=== PATIENT | male | born 1960 | race Caucasian/White ===

== ENCOUNTER 2023-01-17 08:43 | Observation (INO) | payer OTHER, SELFPAY ==
--- NOTE | ~2023-01-17 | XR_ITS ---
EXAMINATION: XR CHEST CLINICAL INFORMATION: Shortness of breath. COMPARISON: None TECHNIQUE: Portable AP view of the chest was obtained. XR/XR chest 1V FINDINGS/IMPRESSION: The study is limited by portable technique and low lung volumes. The right hemidiaphragm is mildly elevated. Associated right basilar patchy density suggests atelectasis and/or infiltrate. The left lung appears grossly clear. No effusion or pneumothorax is noted. The cardiac silhouette is suboptimally evaluated. There are mild degenerative changes of the spine.
--- NOTE | 2023-01-17 08:53 | ECG_ITS ---
Test Reason : DYSPNEA Blood Pressure : / mmHG Vent. Rate : 108 BPM Atrial Rate : 108 BPM P-R Int : 184 ms QRS Dur : 104 ms QT Int : 346 ms P-R-T Axes : 075 -64 062 degrees QTc Int : 463 ms Sinus tachycardia Incomplete right bundle branch block Left anterior fascicular block Abnormal ECG No previous ECGs available Referred By: Katie Manzano Electronically Signed By:
[2023-01-17 08:54] VITALS: BP 143/72; BP 144/74; PULSE 102; PULSE 110; RESP 26; TEMP 36.6; O2SAT 95; BMI 27.1
[2023-01-17 09:06] VITALS: PULSE 115; RESP 23; O2SAT 97
[2023-01-17] MEDS: Albuterol Sulfate (0.083%) 2.5 MG/3 ML VIAL.NEB 10 MG INHALE (09:06)
--- NOTE | 2023-01-17 09:15 | ED.SOB ---
HPI - SOB/Dyspnea General Chief Complaint: Dyspnea Stated Complaint: difficulty breathing Time Seen by Provider: 01/17/23 08:55 Source: patient and EMS Mode of arrival: EMS Limitations: no limitations History of Present Illness HPI Narrative: Patient is a 62-year-old male who presents to emergency department for evaluation of difficulty breathing. He reports onset of symptoms to be suddenly a couple hours prior to arrival. Reports that he was at rest when this developed, he began feeling significantly short of breath. However of note, patient has been having some difficulty breathing over the past couple of months per family member but it has been manageable. Upon EMS arrival today patient was unable to stand or talk in complete sentences, initial O2 saturation was 68% on room air, inspiratory and expiratory wheezing throughout out and look sounds diminished. EMS administered albuterol 5 mg with Atrovent, and 2 g of Mag intravenously. At the time of my examination patient denies recent upper respiratory type symptoms, known sick contacts, fevers, chills, sore throat, headache, dizziness, chest pain, nausea, vomiting, abdominal pain, numbness or tingling of the extremities, edema. Reports his only past medical history to be asthma, for which he takes Flovent and albuterol as needed. Related Data Home Medications Medication Instructions Recorded Confirmed albuterol sulfate 90 mcg/actuation 2 puff inhalation Q4-6H PRN 01/17/23 01/17/23 aerosol inhaler wheezing ascorbic acid (vitamin C) 500 mg 500 mg PO DAILY 01/17/23 01/17/23 tablet (Vitamin C) cholecalciferol (vitamin D3) 25 25 mcg PO DAILY 01/17/23 01/17/23 mcg (1,000 unit) tablet (Vitamin D3) fluticasone propionate 50 1 puff inhalation BID 01/17/23 01/17/23 mcg/actuation blister powder for inhalation (Flovent Diskus) fluticasone propionate 50 1 spray intranasal DAILY 01/17/23 01/17/23 mcg/actuation nasal spray,suspension multivitamin 1 tab PO DAILY 01/17/23 01/17/23 Allergies Allergy/AdvReac Type Severity Reaction Status Date / Time Penicillins Allergy Unknown Unknown Verified 01/17/23 08:53 Review of Systems Review of Systems: Pertinent positives and negatives as reported in HPI Yes all other systems are reviewed and are negative [facility] Past Medical History Attestation statement: The following information was validated with the patient. Source: old records reviewed Medical History (Updated 01/17/23 @ 17:10 by Katie Manzano CNP) Mild persistent asthma Social History Social History Alcohol intake: never Smoked in Last 30 Days: No Use of substances other than those prescribed or required for medical reasons: No Advance Directives: No Advance Directives Information Provided: Yes Physical Exam Vital Signs: Vital Signs: Last Vital Signs Temp 97.5 F 01/17/23 12:52 Pulse 121 H 01/17/23 13:45 Resp 20 01/17/23 13:45 BP 135/63 01/17/23 12:52 Pulse Ox 96 01/17/23 13:45 O2 Del Method 01/17/23 13:45 Oxygen Flow Rate 2 01/17/23 08:54 BMI result Body Mass Index 27.1 Appearance: Alert.?Oriented to person, place and time. No acute distress.?Normal affect. Eyes: Pupils equal, round and reactive to light.? ENT: Pharynx normal.??TM normal bilaterally Neck: Normal inspection.? Neck supple.??No JVD CVS: Heart sounds normal. Normal heart rate and rhythm.? Pulses normal.?? Respiratory: Increased work of breathing.? Lung sounds with inspiratory and expiratory wheezing throughout, diminished at the bases? Abdomen: Soft and non-tender. Normoactive bowel sounds. Skin: Skin warm and dry.? Normal skin color.? Normal skin turgor.?? Extremities: No lower extremity edema.? No calf ttp? Neuro: Moves all extremities spontaneously. Sensation intact bilaterally. No focal neuro deficits. Ambulates with normal steady gait. Course Reevaluation(s) Reevaluation #1: CBC reveals leukocytosis 17.4 with left shift, CMP revealing elevated BUN at 24, borderline creatinine 1.34, troponin 13.6, EKG revealing sinus tachycardia with incomplete right bundle-branch block, no acute ischemic findings. BNP within normal limits COVID-19/influenza testing are negative. Lactic acid is elevated at 3.2, has already received 1 L normal saline IV fluid, will order additional 1721 mL normal saline, chest x-ray revealing right basilar infiltrate concerning for pneumonia, Rocephin IV and doxycycline IV ordered at this time. Sepsis alert called, nursing staff made aware. Time: 10:36 Reevaluation #2: Received call from lab regarding critical lactic acid, resulting at 6.0, although I suspect this is more so due to albuterol administration as opposed to severe sepsis at this time. At this time, he reports significant improvement in symptoms. He remains tachycardic with heart rate in the 1 teens, this may be in part due to albuterol administration, he does additionally state that his heart rate is always high when he was in the doctor's office and/or hospital, due to anxiety. He is in no apparent respiratory distress, maintaining room air saturation at 97% while at rest. Discussed plan of care, inpatient admission for IV antibiotics, sepsis Time: 12:45 Reevaluation #3: Ambulatory O2 sat 94%, remains tachycardic with heart rate in the 120s, tachypneic after exertion respiratory rate 26. Based on his presentation in acute distress to the emergency department, presence of pneumonia, sepsis, spoke with hospitalist team who agree for admission to medicine service, Renee CATALAN Time: 13:51 Medications Administered Generic Name Dose Route Start Last Admin Trade Name Freq PRN Reason Stop Dose Admin Albuterol Sulfate 2.5 mg/ 0 mg 01/17/23 16:00 01/17/23 17:02 Ipratropium [place] 0.5 mg INHALE 1 each RQ4H WHILE AWAKE MICHELLE Administration Enoxaparin Sodium 40 mg 01/17/23 15:45 01/17/23 16:59 Enoxaparin Sodium 40 Mg/0.4 Ml Syringe SUBCUT 40 mg Q24H MICHELLE Administration Methylprednisolone Sodium Succinate 40 mg 01/17/23 15:45 01/17/23 16:59 Methylprednisolone Sod Succ 40 Mg/Ml Vial IVPUSH 40 mg Q12H MICHELLE Administration Sodium Chloride 3 ml 01/17/23 16:00 01/17/23 16:44 0.9 % Sodium Chloride Flush 3 Ml Syringe IVFLUSH Not Given QSHIFT MICHELLE Discontinued Medications Generic Name Dose Route Start Last Admin Trade Name Freq PRN Reason Stop Dose Admin Albuterol Sulfate 10 mg 01/17/23 08:53 01/17/23 09:06 Albuterol Sulfate (0.083%) 2.5 Mg/3 Ml Vial.Neb INHALE 01/17/23 08:54 10 mg ONCE ONE Administration Sodium Chloride 1,000 mls @ 999 mls/hr 01/17/23 10:45 01/17/23 12:37 Ns IV 01/17/23 12:28 Not Given .Q1H1M MICHELLE Ceftriaxone Sodium 1 gm/ 50 mls @ 100 mls/hr 01/17/23 10:41 01/17/23 12:12 Sodium Chloride IV 01/17/23 11:10 Infused ONCE ONE Infusion Doxycycline Hyclate 100 mg/ 250 mls @ 166.67 mls/hr 01/17/23 10:41 01/17/23 13:45 Sodium Chloride IV 01/17/23 12:10 Infused ONCE ONE Infusion Methylprednisolone Sodium Succinate 125 mg 01/17/23 09:19 01/17/23 10:27 Methylprednisolone Sod Succ 125 Mg/2 Ml Vial IVPUSH 01/17/23 09:20 125 mg ONCE ONE Administration Medical Decision Making Medical Decision Making MDM Narrative: Patient is a 62-year-old male with reported past medical history of mild persistent asthma presenting to emergency department for evaluation of sudden onset worsening shortness of breath/difficulty breathing, as reported in HPI. Pre-hospital patient received albuterol 5 mg and Atrovent nebulizer, magnesium 2 g IV. Had significant increased work of breathing and room air hypoxia per EMS report. At the time examination he has tachypnea, tachycardia, based on this meeting criteria for SIRS, will obtain lactic acid and blood cultures, though viral etiology may be the cause at this time. Will obtain CBC to evaluate for leukocytosis/ anemia, CMP and lipase to evaluate for abnormal electrolytes /abnormal renal function/ abnormal hepatic/biliary function, BNP, EKG and troponin to evaluate for ischemia/ACS. Chest x-ray to evaluate for consolidation/ infiltrate/ mass/ pulmonary congestion. Patient to receive an additional albuterol 10 mg nebulizer, Solu-Medrol 125 mg IV. Differential Diagnosis Differential Diagnoses: The differential diagnosis associated with the presentation includes (ACS, pulmonary embolism, pneumonia, congestive heart failure, asthma exacerbation, viral upper respiratory infection; COVID-19, influenza, parainfluenza virus, adenovirus) Admission/Observation Consideration of admission/observation: Escalation of care including admission/observation considered Consult Healthcare Provider Management of the patient was discussed with: Hospitalist (As noted in course) Lab Data [facility] Lab Attestation statement: I reviewed the patient's lab results. 01/17/23 09:31 01/17/23 09:31 Labs: Lab Results 01/17/23 01/17/23 01/17/23 Range/Units 09:31 09:31 09:31 WBC 17.4 H (4.8-10.8) X10*3/uL RBC 5.31 (4.60-5.80) X10*6/uL Hgb 16.9 (14.0-18.0) g/dl Hct 51.8 (42.0-52.0) % MCV 97.6 (80.0-98.0) fL MCH 31.8 (27.0-33.0) pg MCHC 32.6 (31.0-36.0) g/dl RDW 12.5 (11.0-16.0) % Plt Count 196 (160-400) X10*3/uL MPV 10.6 (9.4-12.4) fL Immature Gran % (Auto) 0.6 H (0.0-0.4) % Neut % (Auto) 86.2 H (45-73) % Lymph % (Auto) 7.5 L (20-40) % [place] % (Auto) 4.5 (2-11) % Eos % (Auto) 0.9 (0-4) % Baso % (Auto) 0.3 (0-2) % Lymph # (Auto) 1.3 (1.2-4.9) X10*3/uL [place] # (Auto) 0.8 (0.1-1.2) X10*3/uL Eos # (Auto) 0.2 (0.0-0.4) X10*3/uL Baso # (Auto) 0.1 (0.0-0.2) X10*3/uL Abs Immat Gran (auto) 0.10 H (0.00-0.03) X10*3/uL Absolute Neuts (auto) 15.0 H (2.0-8.3) x10*3/uL Absolute Nucleated RBC 0.000 (0.0-0.012) X10*3/uL Nucleated RBC % (auto) 0.0 (0.0-0.2) /100WBC Sodium 141 (135-145) mmol/L Potassium 4.1 (3.3-5.1) mmol/L Chloride 107 (96-108) mmol/L Carbon Dioxide 24 (22-29) mmol/L Anion Gap 14 (12-20) BUN 24 H (9-16) mg/dL Creatinine 1.34 (0.5-1.4) mg/dL Estim Creat Clear Calc 61.1 Estimated GFR 54 Random Glucose 136 H (60-115) mg/dL Lactic Acid (0.5-2.0) mmol/L Lactic Acid F/U @ 2Hr (0.5-2.0) mmol/L Lactic Acid F/U @ 4Hr (0.5-2.0) mmol/L Calcium 8.6 (8.4-10.2) mg/dL Total Bilirubin 0.6 (0.0-1.0) mg/dL AST 22 (5-37) U/L ALT 31 (0-40) U/L Alkaline Phosphatase 74 (39-117) U/L Troponin I High Sens 13.6 (<3.5-35.0) ng/L B-Natriuretic Peptide (<100) pg/mL Total Protein 6.7 (6.5-8.0) g/dL Albumin 4.1 (3.5-5.0) g/dL COVID-19 ([facility]) (Negative) COVID-19 Clin Com Influenza Type A ([place]) (Negative) Influenza Type B ([place]) (Negative) Influenza A & B Note 01/17/23 01/17/23 01/17/23 Range/Units 09:33 09:33 09:52 WBC (4.8-10.8) X10*3/uL RBC (4.60-5.80) X10*6/uL Hgb (14.0-18.0) g/dl Hct (42.0-52.0) % MCV (80.0-98.0) fL MCH (27.0-33.0) pg MCHC (31.0-36.0) g/dl RDW (11.0-16.0) % Plt Count (160-400) X10*3/uL MPV (9.4-12.4) fL Immature Gran % (Auto) (0.0-0.4) % Neut % (Auto) (45-73) % Lymph % (Auto) (20-40) % [place] % (Auto) (2-11) % Eos % (Auto) (0-4) % Baso % (Auto) (0-2) % Lymph # (Auto) (1.2-4.9) X10*3/uL [place] # (Auto) (0.1-1.2) X10*3/uL Eos # (Auto) (0.0-0.4) X10*3/uL Baso # (Auto) (0.0-0.2) X10*3/uL Abs Immat Gran (auto) (0.00-0.03) X10*3/uL Absolute Neuts (auto) (2.0-8.3) x10*3/uL Absolute Nucleated RBC (0.0-0.012) X10*3/uL Nucleated RBC % (auto) (0.0-0.2) /100WBC Sodium (135-145) mmol/L Potassium (3.3-5.1) mmol/L Chloride (96-108) mmol/L Carbon Dioxide (22-29) mmol/L Anion Gap (12-20) BUN (9-16) mg/dL Creatinine (0.5-1.4) mg/dL Estim Creat Clear Calc Estimated GFR Random Glucose (60-115) mg/dL Lactic Acid 3.2 H* (0.5-2.0) mmol/L Lactic Acid F/U @ 2Hr (0.5-2.0) mmol/L Lactic Acid F/U @ 4Hr (0.5-2.0) mmol/L Calcium (8.4-10.2) mg/dL Total Bilirubin (0.0-1.0) mg/dL AST (5-37) U/L ALT (0-40) U/L Alkaline Phosphatase (39-117) U/L Troponin I High Sens (<3.5-35.0) ng/L B-Natriuretic Peptide (<100) pg/mL Total Protein (6.5-8.0) g/dL Albumin (3.5-5.0) g/dL COVID-19 ([facility]) Negative (Negative) COVID-19 Clin Com See Note Influenza Type A ([place]) Negative (Negative) Influenza Type B ([place]) Negative (Negative) Influenza A & B Note See Note 02/19/23 02/19/23 02/19/23 Range/Units 09:53 12:11 14:41 WBC (4.8-10.8) X10*3/uL RBC (4.60-5.80) X10*6/uL Hgb (14.0-18.0) g/dl Hct (42.0-52.0) % MCV (80.0-98.0) fL MCH (27.0-33.0) pg MCHC (31.0-36.0) g/dl RDW (11.0-16.0) % Plt Count (160-400) X10*3/uL MPV (9.4-12.4) fL Immature Gran % (Auto) (0.0-0.4) % Neut % (Auto) (45-73) % Lymph % (Auto) (20-40) % [place] % (Auto) (2-11) % Eos % (Auto) (0-4) % Baso % (Auto) (0-2) % Lymph # (Auto) (1.2-4.9) X10*3/uL [place] # (Auto) (0.1-1.2) X10*3/uL Eos # (Auto) (0.0-0.4) X10*3/uL Baso # (Auto) (0.0-0.2) X10*3/uL Abs Immat Gran (auto) (0.00-0.03) X10*3/uL Absolute Neuts (auto) (2.0-8.3) x10*3/uL Absolute Nucleated RBC (0.0-0.012) X10*3/uL Nucleated RBC % (auto) (0.0-0.2) /100WBC Sodium (135-145) mmol/L Potassium (3.3-5.1) mmol/L Chloride (96-108) mmol/L Carbon Dioxide (22-29) mmol/L Anion Gap (12-20) BUN (9-16) mg/dL Creatinine (0.5-1.4) mg/dL Estim Creat Clear Calc Estimated GFR Random Glucose (60-115) mg/dL Lactic Acid (0.5-2.0) mmol/L Lactic Acid F/U @ 2Hr 6.0 H* (0.5-2.0) mmol/L Lactic Acid F/U @ 4Hr 7.5 H* (0.5-2.0) mmol/L Calcium (8.4-10.2) mg/dL Total Bilirubin (0.0-1.0) mg/dL AST (5-37) U/L ALT (0-40) U/L Alkaline Phosphatase (39-117) U/L Troponin I High Sens (<3.5-35.0) ng/L B-Natriuretic Peptide 20 (<100) pg/mL Total Protein (6.5-8.0) g/dL Albumin (3.5-5.0) g/dL COVID-19 ([facility]) (Negative) COVID-19 Clin Com Influenza Type A ([place]) (Negative) Influenza Type B ([place]) (Negative) Influenza A & B Note Independent Interpretation I performed an independent interpretation of an: EKG and Plain X-Ray (I personally interpreted chest x-ray and agree with radiologist impression.) Interpretation: Rate: 111 Rhythm:? Sinus tachycardia [place]:? Normal Normal P waves.? Normal MICHAEL.?? Normal QRS complex.?? ST T wave :? No ST elevation, no ST depression? qTC: 459 prior studies:? None prior available for review The study has been interpreted contemporaneously by me. Radiology Impression Discussion of test interpretation with radiology: I have reviewed the radiologist's reading. Radiologist Impression: XR/XR chest 1V FINDINGS/IMPRESSION: ? The study is limited by portable technique and low lung volumes. ? The right hemidiaphragm is mildly elevated. Associated right basilar patchy density suggests atelectasis and/or infiltrate. ? The left lung appears grossly clear. ? No effusion or pneumothorax is noted. ? The cardiac silhouette is suboptimally evaluated. There are mild degenerative changes of the spine. Independent Historian Clinical information obtained from an independent historian. History obtained from or confirmed by: Spouse (Patient's at bedside and confirms history) and EMS (Obtained history from EMS directly) Chronic Conditions Patient?s care impacted by: Other (Asthma) Critical Care Time Critical Care Time Critical Care Time: Yes Total Critical Care Time: 40 Attestation: I personally attest to this critical care time spent taking care of the patient exclusive of all other billable procedures was approximately 40 minutes including initial evaluation of patient, ordering tests, x-ray interpretation, EKG interpretation, medical consultation, documentation, re-evaluation. Discharge Plan Discharge Clinical Impression: Community acquired pneumonia, Asthma exacerbation, Sepsis Patient Disposition: Admitted As Inpatient
[2023-01-17 09:38] LABS: MANUAL DIFF FLAG NO
[2023-01-17 09:39] LABS: Basophils Absolute Auto 0.1 X10*3/uL (0.0-0.2); Basophils Percent Auto 0.3 % (0-2); Eosinophils Absolute Auto 0.2 X10*3/uL (0.0-0.4); Eosinophils Percent Auto 0.9 % (0-4); Hematocrit 51.8 % (42.0-52.0); Hemoglobin 16.9 g/dl (14.0-18.0); Imm Gran Pct Auto 0.6 % (0.0-0.4); Lymphocytes Absolute Auto 1.3 X10*3/uL (1.2-4.9); Lymphocytes Percent Auto 7.5 % (20-40); Mean Corpuscular HGB Conc 32.6 g/dl (31.0-36.0); Mean Corpuscular Hemoglobin 31.8 pg (27.0-33.0); Mean Corpuscular Volume 97.6 fL (80.0-98.0); Mean Platelet Volume 10.6 fL (9.4-12.4); Monocytes Absolute Auto 0.8 X10*3/uL (0.1-1.2); Monocytes Percent Auto 4.5 % (2-11); Neutrophils Percent Auto 86.2 % (45-73); Platelet Count 196 X10*3/uL (160-400); Red Blood Count 5.31 X10*6/uL (4.60-5.80); Red Cell Distribution Width 12.5 % (11.0-16.0); White Blood Count 17.4 X10*3/uL (4.8-10.8)
[2023-01-17 09:53] LABS: Alanine Aminotransferase 31 U/L (0-40); Albumin Level 4.1 g/dL (3.5-5.0); Alkaline Phosphatase 74 U/L (39-117); Anion Gap 14 (12-20); Aspartate Amino Transferase 22 U/L (5-37); Bilirubin Total 0.6 mg/dL (0.0-1.0); Blood Urea Nitrogen 24 mg/dL (9-16); Calcium 8.6 mg/dL (8.4-10.2); Carbon Dioxide 24 mmol/L (22-29); Chloride 107 mmol/L (96-108); Creatinine Clr Calc Pharmacy 61.1; Estimated Glomerular Filt Rate 54; Glucose Random 136 mg/dL (60-115); Potassium 4.1 mmol/L (3.3-5.1); Sodium 141 mmol/L (135-145); Total Protein 6.7 g/dL (6.5-8.0)
[2023-01-17 09:58] LABS: IDNOW Serial# 16C4AD1C; IDNOW Serial# BCCEAD1C; Influenza A Negative (Negative); Influenza B2 Negative (Negative)
[2023-01-17 09:59] LABS: COVID-19 Test Negative (Negative)
[2023-01-17 10:00] LABS: Troponin-I High Sensitivity 13.6 ng/L (<3.5-35.0)
[2023-01-17] MEDS: methylPREDNISolone Sod Succ 125 MG/2 ML VIAL IVPUSH (10:27)
[2023-01-17 10:31] LABS: B Type Natriuretic Peptide 20 pg/mL (<100)
[2023-01-17 10:36] LABS: Lactic Acid 3.2 mmol/L (0.5-2.0)
[2023-01-17] MEDS: cefTRIAXone sodium 1 GM in 0.9 % Sodium Chloride 50 ML IV (11:08)
[2023-01-17] MEDS: Doxycycline Hyclate 100 MG in 0.9 % Sodium Chloride 250 ML 166.67 MG IV (11:40)
[2023-01-17] MEDS: 0.9 % Sodium Chloride 1,000 ML 999 ML IV (11:43)
[2023-01-17 11:56] LABS: Reflex Lactate? Lactic Acid Added
--- NOTE | 2023-01-17 12:37 | PC.NURSE ---
emar unable to allow scanning of second liter of ordered fluid to match 1721ml order total, 721ml difference from second liter administered and infused.
[2023-01-17 12:52] VITALS: BP 135/63; PULSE 117; RESP 12; TEMP 36.4; O2SAT 97
[2023-01-17 13:45] VITALS: PULSE 121; RESP 20; O2SAT 96
[2023-01-17 14:14] LABS: Reflex Lactate? 2 Y
[2023-01-17 15:06] LABS: ~Lactic Acid-LAB USE ONLY 7.5 mmol/L (0.5-2.0)
--- NOTE | 2023-01-17 15:11 | PHA.MEDREC ---
Pharmacy Consult ? Medication Reconciliation Pharmacy has completed the medication reconciliation. Patient states he also takes lorazepam 0.5 mg as needed for anxiety but cannot find any claim history in last 2 years for that. He also requested me to get some for him for his white coat anxiety. I explained he could talk to his nurse when they come in the room next but I couldn't do that.
--- NOTE | 2023-01-17 15:52 | P.HPHOSP_ITS ---
History of Present Illness Date of Service: 01/17/23 Attending physician on admission: Manish Murry Chief Complaint: sob, wheezing, cough 62-year-old male with history of mild persistent asthma presented to the ED earlier today via EMS for evaluation of shortness of breath and wheezing that started this morning. The patient reports sudden onset of shortness of breath and wheezing that was not resolving with albuterol usage. He states that his , who is a respiratory therapist, reported his fingers were cyanotic. He does also state that for the last few months, his asthma has been worsening with shortness of breath and chronic productive cough despite compliance with maintenance Flovent inhaler and albuterol. There has also been chronic nasal congestion and PND. He does note that triggers are primarily environmental, specially for recurrences. On arrival, per EMS oximetry of 68%. He was treated with Atrovent, 2 g magnesium with improvement in respiratory symptoms. He has had 3 asthma exacerbations in the last 4 months requiring prednisone but states he has never been hospitalized nor has he been intubated for his asthma symptoms. On arrival, patient was noted to be tachycardic to 110, tachypneic to 26, weaned off of supplemental O2 maintaining oximetry of 97% on room air. Tachypneic has also resolved though patient is intermittently tachycardic. Reports he does get white coat syndrome and feels quite anxious. Leukocytosis of 17.4. Renal function without significant abnormality. Electrolyte levels normal. Initial lactic acid 3.2, repeat lactic acid at 02:00 hours 6.0, repeat lactic acid in 4 hours 7.7, following albuterol administrations. CXR showing low lung volumes, right basilar patchy density suggestive of atelectasis versus infiltrate. In the ED was treated with albuterol nebulizer, wanted 25 mg methylprednisolone IV, 1 g ceftriaxone, 100 mg IV Vibramycin, and 1 L IV NS. Pt is comfortable on exam without any respiratory distress on arrival. Patient to be observed for acute asthma exacerbation with pneumonia. Review of Systems Review of Systems: General: No fevers, malaise, unintentional weight loss HEENT: +nasal congestion, +PND. No sore throat, rhinorrhea, sinus pain, ear pain Cardiovascular: No chest pain, palpitations, or leg edema Respiratory: + shortness of breath, +wheezing, +cough GI: No abdominal pain, nausea, vomiting, diarrhea, constipation, melena, hematochezia : No dysuria, hematuria, increased urinary frequency, decreased urinary output MSK: No myalgia, back pain Neuro: No headaches, weakness, paresthesias Skin: No rashes or lesions [facility] Medical History (Updated 01/17/23 @ 17:10 by Katie Manzano CNP) Mild persistent asthma Social History Household Members: Spouse and Family Housing: House Do you presently have visiting nurse or other home services: No Alcohol intake: never Patient Tobacco Use Status: Never used Tobacco Smoked in Last 30 Days: No Use of substances other than those prescribed or required for medical reasons: No Currently Displaying Signs/Symptoms of Drug Intoxication Withdrawal: No Have you been hit, kicked, punched, or otherwise hurt by someone within the past year? If so, by whom?: No Do you feel safe in your current relationship?: No Is there a partner from a previous relationship who is making you feel unsafe now?: No Are you made to feel afraid or neglected: No Advance Directives: No Advance Directives Information Provided: Yes Do you have thoughts of harming others: None Do you have a plan to hurt others: No Plan Recently lost weight without trying: No How much weight loss: Unsure Eating poorly because of decreased appetite: No Nutrition screen score: 2 Nutrition Risks: No Nutritional Risk Poor oral hygiene: No Meds Allergies Allergy/AdvReac Type Severity Reaction Status Date / Time Penicillins Allergy Unknown Unknown Verified 01/17/23 08:53 Active Medications: Current Medications Acetaminophen (Acetaminophen 325 Mg Tablet) 650 mg PO Q6H PRN PRN Reason: Pain, Mild (Pain Scale 1-3) Albuterol Sulfate (Albuterol Sulfate (0.083%) 2.5 Mg/3 Ml Vial.Neb) 2.5 mg INHA LE Q2H PRN PRN Reason: Shortness of Breath/Wheezing Ascorbic Acid (Ascorbic Acid 500 Mg Tablet) 500 mg PO DAILY MICHELLE Albuterol Sulfate 2.5 mg/ (Ipratropium [place] 0.5 mg) 0 mg INHALE RQ4H WHILE AWAKE MICHELLE Docusate Sodium (Docusate Sodium 100 Mg Capsule) 100 mg PO DAILY PRN PRN Reason: Constipation Enoxaparin Sodium (Enoxaparin Sodium 40 Mg/0.4 Ml Syringe) 40 mg SUBCUT Q24H [facility] Fluticasone Propionate (Fluticasone Propionate Nasal 16 Gm [place]) 1 spray NOSTRIL-B DAILY [facility] Ceftriaxone Sodium 1 gm/ (Sodium Chloride) 50 mls @ 100 mls/hr IV Q24H [facility] Doxycycline Hyclate 100 mg/ (Sodium Chloride) 250 mls @ 166.67 mls/hr IV Q12H [facility] Stop: 01/22/23 13:59 Methylprednisolone Sodium Succinate (Methylprednisolone Sod Succ 40 Mg/Ml Vial) 40 mg IVPUSH Q12H [facility] Montelukast Sodium (Montelukast Sodium 10 Mg Tablet) 10 mg PO BEDTIME [facility] Multivitamins/Vitamin C (Multivitamin Tablet) 1 tab PO DAILY [facility] Non-Formulary Medication (Fluticasone Propionate [Flovent Diskus]) 1 puff INHALE BID [facility] Ondansetron HCl (Ondansetron Hcl 4 Mg/2 Ml Vial) 4 mg IVPUSH Q8H PRN PRN Reason: Nausea and Vomiting Pharmacy Consult (Consult Rx Perform Med Rec) 1 each MISCELLANE ONCE PRN PRN Reason: Consult order Sodium Chloride (0.9 % Sodium Chloride Flush 3 Ml Syringe) 3 ml IVFLUSH QSHIFT [facility] Vitamin D (Cholecalciferol (Vitamin D3) 25 Mcg Tablet) 25 mcg PO DAILY [facility] Home Medications Medication Instructions Recorded Confirmed Last Taken Type albuterol sulfate 90 mcg/actuation 2 puff inhalation Q4-6H PRN 01/17/23 01/17/23 01/17/23 History aerosol inhaler wheezing ascorbic acid (vitamin C) 500 mg 500 mg PO DAILY 01/17/23 01/17/23 01/17/23 History tablet (Vitamin C) cholecalciferol (vitamin D3) 25 25 mcg PO DAILY 01/17/23 01/17/23 01/17/23 History mcg (1,000 unit) tablet (Vitamin D3) fluticasone propionate 50 1 puff inhalation BID 01/17/23 01/17/23 01/17/23 History mcg/actuation blister powder for inhalation (Flovent Diskus) fluticasone propionate 50 1 spray intranasal DAILY 01/17/23 01/17/23 Unknown History mcg/actuation nasal spray,suspension multivitamin 1 tab PO DAILY 01/17/23 01/17/23 01/17/23 History Physical Exam Vital Signs and Narrative: Vital Signs: Last Vital Signs Temp 97.5 F 01/17/23 12:52 Pulse 121 H 01/17/23 13:45 Resp 20 01/17/23 13:45 BP 135/63 01/17/23 12:52 Pulse Ox 96 01/17/23 13:45 O2 Del Method 01/17/23 13:45 Oxygen Flow Rate 2 01/17/23 08:54 BMI result Body Mass Index 27.1 Constitutional - Awake and Alert, No apparent distress Eyes - PERRLA, EOMI Cardiovascular - S1S2, RRR, No edema Respiratory - Normal lung expansion, Normal respiratory effort, No respiratory distress, rhonchi right lower lobe, expiratory wheezes lower lobes bilaterally Gastrointestinal - NT / ND; +BS; No rebound or guarding Extremities - no calf tenderness bilaterally, no swelling Skin - Warm/Dry Neurological - Alert & oriented x3 Psychological - Appropriate affect Results Labs 01/17/23 09:31 01/17/23 09:31 Labs: Laboratory Results - last 24 hr 01/17/23 01/17/23 01/17/23 09:31 09:31 09:31 MCV 97.6 MCH 31.8 MCHC 32.6 RDW 12.5 Plt Count 196 MPV 10.6 Immature Gran % (Auto) 0.6 H Neut % (Auto) 86.2 H Lymph % (Auto) 7.5 L [place] % (Auto) 4.5 Eos % (Auto) 0.9 Baso % (Auto) 0.3 Lymph # (Auto) 1.3 [place] # (Auto) 0.8 Eos # (Auto) 0.2 Baso # (Auto) 0.1 Abs Immat Gran (auto) 0.10 H Absolute Neuts (auto) 15.0 H Absolute Nucleated RBC 0.000 Nucleated RBC % (auto) 0.0 Anion Gap 14 Estim Creat Clear Calc 61.1 Estimated GFR 54 Random Glucose 136 H Lactic Acid Lactic Acid F/U @ 2Hr Lactic Acid F/U @ 4Hr Calcium 8.6 Total Bilirubin 0.6 AST 22 ALT 31 Alkaline Phosphatase 74 Troponin I High Sens 13.6 B-Natriuretic Peptide Total Protein 6.7 Albumin 4.1 COVID-19 ([facility]) COVID-19 Clin Com Influenza Type A ([place]) Influenza Type B ([place]) Influenza A & B Note 01/17/23 01/17/23 01/17/23 09:33 09:33 09:52 MCV MCH MCHC RDW Plt Count MPV Immature Gran % (Auto) Neut % (Auto) Lymph % (Auto) [place] % (Auto) Eos % (Auto) Baso % (Auto) Lymph # (Auto) [place] # (Auto) Eos # (Auto) Baso # (Auto) Abs Immat Gran (auto) Absolute Neuts (auto) Absolute Nucleated RBC Nucleated RBC % (auto) Anion Gap Estim Creat Clear Calc Estimated GFR Random Glucose Lactic Acid 3.2 H* Lactic Acid F/U @ 2Hr Lactic Acid F/U @ 4Hr Calcium Total Bilirubin AST ALT Alkaline Phosphatase Troponin I High Sens B-Natriuretic Peptide Total Protein Albumin COVID-19 ([place]) Negative COVID-[employer] See Note Influenza Type A ([place]) Negative Influenza Type B ([place]) Negative Influenza A & B Note See Note 01/17/23 01/17/23 01/17/23 09:53 12:11 14:41 MCV MCH MCHC RDW Plt Count MPV Immature Gran % (Auto) Neut % (Auto) Lymph % (Auto) [place] % (Auto) Eos % (Auto) Baso % (Auto) Lymph # (Auto) [place] # (Auto) Eos # (Auto) Baso # (Auto) Abs Immat Gran (auto) Absolute Neuts (auto) Absolute Nucleated RBC Nucleated RBC % (auto) Anion Gap Estim Creat Clear Calc Estimated GFR Random Glucose Lactic Acid Lactic Acid F/U @ 2Hr 6.0 H* Lactic Acid F/U @ 4Hr 7.5 H* Calcium Total Bilirubin AST ALT Alkaline Phosphatase Troponin I High Sens B-Natriuretic Peptide 20 Total Protein Albumin COVID-19 ([facility]) COVID-[employer] Com Influenza Type A ([place]) Influenza Type B ([place]) Influenza A & B Note Imaging Radiologist's Impressions: Impressions Chest X-Ray 01/17/23 10:05 FINDINGS/IMPRESSION: The study is limited by portable technique and low lung volumes. The right hemidiaphragm is mildly elevated. Associated right basilar patchy density suggests atelectasis and/or infiltrate. The left lung appears grossly clear. No effusion or pneumothorax is noted. The cardiac silhouette is suboptimally evaluated. There are mild degenerative changes of the spine. Assessment and Plan (1) Asthma exacerbation: Status: Acute Plan 62-year-old male with history of mild persistent asthma to be observed for acute asthma exacerbation with community-acquired pneumonia. # community-acquired pneumonia -negative for COVID-19 and influenza -CXR showing right basilar patchy densities suggestive of atelectasis versus infiltrate -given ceftriaxone and doxycycline in the ED. Continue IV ceftriaxone and IV do xycycline b.i.d. x5 days (initiated 01/17) -guaifenesin p.r.n. for cough # acute mild persistent asthma exacerbation -reportedly was hypoxic to 60% at home per EMS. However, on arrival, no respiratory distress with oximetry 94% -given 125 mg Solu-Medrol in the ED. Continue 40 mg Solu-Medrol b.i.d. -DuoNebs q.4h while awake -albuterol p.r.n. -continue Flovent. Has also had 3 additional exacerbations in the last 4 months related to environmental exposures. Will trial Singulair -recommend follow-up outpatient with allergy/immunology DVT prophylaxis-Lovenox Full code Time Spent With Patient Time: Total time managing care of this patient today ____ minutes. Quality Stroke Does the patient have a stroke diagnosis?: No VTE Prior VTE?: No VTE Risk Level:: Medical - moderate - high VTE Device Contraindication: Treatment Not Indicated VTE Drug Contraindication: N/A - Med Ordered
[2023-01-17] MEDS: methylPREDNISolone Sod Succ 40 MG/ML VIAL IVPUSH (16:59)
[2023-01-17] MEDS: Enoxaparin Sodium 40 MG/0.4 ML SYRINGE SUBCUT (16:59)
[2023-01-17 19:00] VITALS: BP 122/59; PULSE 116; RESP 16; O2SAT 95
[2023-01-17] MEDS: Montelukast Sodium 10 MG TABLET PO (21:08)
--- NOTE | 2023-01-18 02:22 | PC.NURSE ---
Patient ambulates independently. Patients oxygen saturation is 93% on room air while sleeping. heart rate 93.
[2023-01-18] MEDS: 0.9 % Sodium Chloride Flush 3 ML SYRINGE IVFLUSH ×2 (03:52→08:43)
[2023-01-18] MEDS: methylPREDNISolone Sod Succ 40 MG/ML VIAL IVPUSH (03:52)
[2023-01-18 03:54] VITALS: BP 127/60; PULSE 99; RESP 18; TEMP 36.5; O2SAT 95
--- NOTE | 2023-01-18 04:07 | PC.NURSE ---
Nurse to nurse report called to [facility] spoke to GAVIN Carrera. Patient to be transported to room 384 by door technician.
[2023-01-18 04:23] VITALS: BMI 27.7
[2023-01-18 04:44] VITALS: BP 136/64; PULSE 92; RESP 20; TEMP 36.4; O2SAT 100
[2023-01-18] MEDS: Throat Lozenge, Medicated LOZENGE 1 LOZENGE MUCOUS MEM (05:09)
[2023-01-18 06:36] LABS: Basophils Percent Auto 0.1 % (0-2); Hematocrit 42.4 % (42.0-52.0); Hemoglobin 14.1 g/dl (14.0-18.0); Imm Gran Abs Auto 0.11 X10*3/uL (0.00-0.03); Imm Gran Pct Auto 0.5 % (0.0-0.4); Lymphocytes Absolute Auto 0.7 X10*3/uL (1.2-4.9); Lymphocytes Percent Auto 3.1 % (20-40); MANUAL DIFF FLAG SCAN; Mean Corpuscular HGB Conc 33.3 g/dl (31.0-36.0); Mean Corpuscular Hemoglobin 32.5 pg (27.0-33.0); Mean Corpuscular Volume 97.7 fL (80.0-98.0); Mean Platelet Volume 11.3 fL (9.4-12.4); Monocytes Absolute Auto 0.4 X10*3/uL (0.1-1.2); Neutrophils Absolute Auto 19.8 x10*3/uL (2.0-8.3); Neutrophils Percent Auto 94.3 % (45-73); Platelet Count 201 X10*3/uL (160-400); Red Blood Count 4.34 X10*6/uL (4.60-5.80); Red Cell Distribution Width 12.8 % (11.0-16.0); SCAN SMEAR FLAG 1; White Blood Count 21.1 X10*3/uL (4.8-10.8)
[2023-01-18 06:57] LABS: Anion Gap 14 (12-20); Blood Urea Nitrogen 19 mg/dL (9-16); Calcium 9.1 mg/dL (8.4-10.2); Carbon Dioxide 22 mmol/L (22-29); Chloride 110 mmol/L (96-108); Creatinine Clr Calc Pharmacy 87.1; Estimated Glomerular Filt Rate > 60; Glucose Random 122 mg/dL (60-115); Potassium 4.9 mmol/L (3.3-5.1); Sodium 141 mmol/L (135-145)
[2023-01-18 06:58] LABS: SLIDE REVIEW VERIFIED
[2023-01-18 07:39] VITALS: BP 124/60; PULSE 109; RESP 18; TEMP 36.7; O2SAT 96
[2023-01-18 07:49] VITALS: PULSE 112; RESP 20; O2SAT 97
[2023-01-18] MEDS: Cholecalciferol (Vitamin D3) 25 MCG TABLET PO (08:42)
[2023-01-18] MEDS: Ascorbic Acid 500 MG TABLET PO (08:42)
[2023-01-18] MEDS: Multivitamin TABLET 1 TAB PO (08:43)
[2023-01-18] MEDS: cefTRIAXone sodium 1 GM in 0.9 % Sodium Chloride 50 ML IV (10:43)
[2023-01-18 11:02] VITALS: RESP 18; O2SAT 98
--- NOTE | 2023-01-18 11:21 | P.DS_ITS ---
DS: Providers Provider Date of Service: 01/18/23 Date of admission: 01/17/23 15:44 Primary care physician: Unknown Physician DS: Diagnosis Discharge Diagnosis (1) Asthma exacerbation: Status: Acute DS: Summary Hospital Course Hospital Course: Date of Service: 01/17/23 Attending physician on admission: Manish Murry Chief Complaint: sob, wheezing, cough 62-year-old male with history of mild persistent asthma presented to the ED earlier today via EMS for evaluation of shortness of breath and wheezing that started this morning.? The patient reports sudden onset of shortness of breath and wheezing that was not resolving with albuterol usage.? He states that his , who is a respiratory therapist, reported his fingers were cyanotic.? He does also state that for the last few months, his asthma has been worsening with shortness of breath and chronic productive cough despite compliance with maintenance Flovent inhaler and albuterol. There has also been chronic nasal congestion and PND. He does note that triggers are primarily environmental, specially for recurrences.? On arrival, per EMS oximetry of 68%.? He was treated with Atrovent, 2 g magnesium with improvement in respiratory symptoms.? He has had 3 asthma exacerbations in the last 4 months requiring prednisone but states he has never been hospitalized nor has he been intubated for his asthma symptoms.? On arrival, patient was noted to be tachycardic to 110, tachypneic to 26, weaned off of supplemental O2 maintaining oximetry of 97% on room air.? Tachypneic has also resolved though patient is intermittently tachycardic.? Reports he does get white coat syndrome and feels quite anxious. Leukocytosis of 17.4.? Renal function without significant abnormality.? Electrolyte levels normal.? Initial lactic acid 3.2, repeat lactic acid at 02:00 hours 6.0, repeat lactic acid in 4 hours 7.7, following albuterol administrations. CXR showing low lung volumes, right basilar patchy density suggestive of atelectasis versus infiltrate.? In the ED was treated with albuterol nebulizer, wanted 25 mg methyl prednisolone IV, 1 g ceftriaxone, 100 mg IV Vibramycin, and 1 L IV NS. Pt is comfortable on exam without any respiratory distress on arrival.? Patient to be observed for acute asthma exacerbation with pneumonia. 62-year-old male with history of mild persistent asthma to be observed for acute asthma exacerbation with community-acquired pneumonia. # community-acquired pneumonia, patient admitted to medical floor treated with IV ceftriaxone and doxycycline with good response patient is afebrile, no shortness of breath or cough, leukocytosis due to steroids, oxygenation stable on room air since patient is hemodynamically stable he is being discharged home on po doxycycline and Ceftin to finish a total 5 day course of antibiotic and recommended to use cough medication as needed COVID-19 and influenza negative # acute mild persistent asthma exacerbation as per patient he had recurrent bout of asthma in loss few months since he had two new cats, with significant shortness of breath, cough, took 2 courses of prednisone seems more likely allergy related, placed on Claritin, Singulair, prednisone and continued on Flovent and albuterol strongly recommend to avoid allergens and to have out patient Allergy and immunology consultation. Time Spent with Patient Time attestation: Total time managing care of this patient today ____ minutes. Discharge coordination time: Greater than 30 minutes Quality: Safe Use of Opioids Does Pt have an Active Cancer Diagnosis on the Problem List?: No Quality: Stroke Does the patient have a stroke diagnosis?: No Physical Exam Vital Signs: Vital Signs: Last Vital Signs Temp 98.1 F 01/18/23 07:39 Pulse 112 H 01/18/23 07:49 Resp 18 01/18/23 11:02 BP 124/60 01/18/23 07:39 Pulse Ox 96 01/18/23 07:39 O2 Del Method 01/18/23 07:39 Oxygen Flow Rate 2 01/17/23 08:54 BMI result Body Mass Index 27.7 Const: Other: General resting comfortably in no acute distress, talking in full sentences. Neck supple no JVD. CVS regular rate rhythm, Respiratory lungs clear to auscultation, no respiratory distress, no wheeze, no rhonchi. Gastrointestinal abdomen soft, nontender, bowel sounds audible, no guarding , no rigidity. Extremities no edema. Neuro nonfocal Skin no rash Psych appropriate affect DS: Data Data Completed and Pending Labs on day of discharge: Laboratory Results - last 24 hr 01/17/23 01/17/23 01/18/23 12:11 14:41 05:34 WBC 21.1 H RBC 4.34 L Hgb 14.1 Hct 42.4 MCV 97.7 MCH 32.5 MCHC 33.3 RDW 12.8 Plt Count 201 MPV 11.3 Immature Gran % (Auto) 0.5 H Neut % (Auto) 94.3 H Lymph % (Auto) 3.1 L [place] % (Auto) 2.0 Eos % (Auto) 0.0 Baso % (Auto) 0.1 Lymph # (Auto) 0.7 L [place] # (Auto) 0.4 Eos # (Auto) 0.0 Baso # (Auto) 0.0 Abs Immat Gran (auto) 0.11 H Absolute Neuts (auto) 19.8 H Absolute Nucleated RBC 0.000 Nucleated RBC % (auto) 0.0 Smear Tech's Comments VERIFIED Sodium Potassium Chloride Carbon Dioxide Anion Gap BUN Creatinine Estim Creat Clear Calc Estimated GFR Random Glucose Lactic Acid F/U @ 2Hr 6.0 H* Lactic Acid F/U @ 4Hr 7.5 H* Calcium 01/18/23 05:34 WBC RBC Hgb Hct MCV MCH MCHC RDW Plt Count MPV Immature Gran % (Auto) Neut % (Auto) Lymph % (Auto) [place] % (Auto) Eos % (Auto) Baso % (Auto) Lymph # (Auto) [place] # (Auto) Eos # (Auto) Baso # (Auto) Abs Immat Gran (auto) Absolute Neuts (auto) Absolute Nucleated RBC Nucleated RBC % (auto) Smear Tech's Comments Sodium 141 Potassium 4.9 Chloride 110 H Carbon Dioxide 22 Anion Gap 14 BUN 19 H Creatinine 0.94 Estim Creat Clear Calc 87.1 Estimated GFR > 60 Random Glucose 122 H Lactic Acid F/U @ 2Hr Lactic Acid F/U @ 4Hr Calcium 9.1 Discharge Plan Discharge Anticipated Discharge Date/Time: 01/18/23 11:02 Patient Disposition: Home, Self-Care Discharge Diagnosis: acute mild persistent asthma exacerbation Community-acquired pneumonia Referrals: Physician,Unknown J [Primary Care Provider] - 1 Week Discharge Medications: New montelukast 10 mg Tablet 10 mg PO BEDTIME Qty: 30 0RF doxycycline hyclate 100 mg capsule 100 mg PO BID Qty: 8 0RF loratadine [Claritin] 10 mg tablet 10 mg PO DAILY Qty: 30 0RF cefuroxime axetil 500 mg tablet 500 mg PO Q12H Qty: 8 0RF prednisone 10 mg tablet See Taper PO DIRECTED Qty: 30 0RF Taper: Prednisone 40 mg daily for 3 Days and 0 Hour 30 mg daily for 3 Days and 0 Hour 20 mg daily for 3 Days and 0 Hour 10 mg daily for 3 Days and 0 Hour Rx Instructions: see taper instructions Continued Flovent Diskus 50 mcg/actuation blister with device 1 puff INHALATION BID albuterol sulfate 90 mcg/actuation HFA aerosol inhaler 2 puff INHALATION Q4-6H PRN (Reason: wheezing) fluticasone propionate 50 mcg/actuation spray,suspension 1 spray intranasal DAILY multivitamin Tablet 1 tab PO DAILY ascorbic acid (vitamin C) [Vitamin C] 500 mg Tablet 500 mg PO DAILY cholecalciferol (vitamin D3) [Vitamin D3] 25 mcg (1,000 unit) Tablet 25 mcg PO DAILY Discharge Orders: Discharge Order (Routine); Ordered 01/18/23 Ordered By: Manish Murry Diet: Advance to usual diet Activity on Discharge: As tolerated Stand Alone Forms: Patient Portal Discharge page Care Plan Goals: Recurrent flares of asthma likely due to allergy with exposure to cats dander/avoid allergens, Community-acquired pneumonia take doxycycline 100 mg twice daily and Ceftin 500 mg twice daily for 4 more days Prednisone tapering dose, Claritin 10 mg by mouth daily, Singulair 1 tablet daily Health Concerns: Recurrent asthma flare Plan of Treatment: Outpatient follow-up with primary care physician, outpatient allergy and immunologic testing Assessment: As above Discharge Date/Time: 01/18/23 12:35
--- NOTE | 2023-01-18 13:06 | MHC.CM.PN ---
PT DISCHARGED HOME WITH NO SERVICES PRIOR TO BEING SEEN BY CM FAMILY PROVIDED TRANSPORT
== END 2023-01-18 12:35 | disposition home or self-care (01) ==
LOC: HO.ED 09:32 → HO.EDOVER 15:59 → HO.S3 01-18 03:14
PROVIDERS: Nurse Practitioner Family; Admitting Provider Physician Assistant; Emergency Provider Emergency Medicine; Visit Provider Hospitalist
DX: J45.31 Mild persistent asthma with (acute) exacerbation (principal); J18.8 Other pneumonia, unspecified organism; Z20.822 Contact with and (suspected) exposure to COVID-19
CPT/HCPCS: 36415; 71045; 80048; 80053; 83605; 83880; 84484; 85025; 87040; 87147; 87205; 87502; 87635; 93005; 94640; 96365; 96372; 96375; 96376; 99221; 99285; J0696; J1650; J2920; J2930